=== PATIENT | female | born 1975 ===

== ENCOUNTER 2016-06-07 11:37 | Observation (INO) ==
[2016-06-07 12:51] LABS: Basophils # 0.1 K/mcL (0.0-0.2); Basophils % 0.4 %; Eosinophils # 0.2 K/mcL (0.0-0.6); Eosinophils % 1.1 %; Hematocrit 33.9 % (35.3-44.9); Hemoglobin 11.6 g/dL (11.5-15.4); Immature Granulocytes % 3.8 % (0-4); Immature Platelets 2.7 % (1.1-6.1); Lymphocytes # 2.3 K/mcL (0.6-4.6); Lymphocytes % 16.1 %; Mean Corpuscular HGB Conc 34.2 g/dL (31.6-35.5); Mean Corpuscular Hemoglobin 32.6 pg (28.0-33.3); Mean Corpuscular Volume 95.2 fL (83.0-100.0); Mean Platelet Volume 10.2 fL (9.4-12.4); Monocytes # 1.1 K/mcL (0.0-1.3); Monocytes % 7.5 %; Neutrophils # 10.1 K/mcL (1.6-8.9); Platelet Count 283 K/mcL (140-400); Red Blood Count 3.56 M/mcL (3.82-4.97); Segmented Neutrophils % 71.1 %
[2016-06-07 12:59] LABS: Creatinine,Urine 27 mg/dL
[2016-06-07 13:00] LABS: Protein/Creatinine Ratio,Urine < 0.26 mg/mg (0-0.20)
[2016-06-07 13:04] LABS: Alanine Aminotransferase 29 Units/L (0-55); Aspartate Amino Transferase 24 Units/L (5-34); BUN/Creatinine Ratio 10 (6-26); Blood Urea Nitrogen 6 mg/dL (7-20); Lactate Dehydrogenase 119 Units/L (159-327); Uric Acid 3.3 mg/dL (2.6-6.0); eGFR For African Americans > 60 (> 60); eGFR For Non-African Americans > 60 (> 60)
== END 2016-06-07 13:40 | disposition home or self-care (01) ==
LOC: 1NENULAB
PROVIDERS: ADMIT Obstetrics & Gynecology; ATTEND Obstetrics & Gynecology

== ENCOUNTER 2016-09-10 05:45 | Inpatient (IN) ==
[~2016-09-10 05:45] MED LIST: Famotidine 20 MG/2 ML VIAL IVP PRN; Naloxone 0.4 MG/ML INJ IVP PRN; Penicillin G Potassium 5,000,000 UNIT in D5% in Water (Mini-Bag+) 100 ML IVPB ONE
[2016-09-10 05:56] LABS: Basophils % 0.3 %; Eosinophils # 0.1 K/mcL (0.0-0.6); Hematocrit 34.1 % (35.3-44.9); Hemoglobin 11.8 g/dL (11.5-15.4); Immature Granulocytes % 3.2 % (0-4); Immature Platelets 5.9 % (1.1-6.1); Lymphocytes # 2.4 K/mcL (0.6-4.6); Mean Corpuscular HGB Conc 34.6 g/dL (31.6-35.5); Mean Corpuscular Hemoglobin 32.5 pg (28.0-33.3); Mean Corpuscular Volume 93.9 fL (83.0-100.0); Mean Platelet Volume 11.4 fL (9.4-12.4); Monocytes # 1.4 K/mcL (0.0-1.3); Monocytes % 9.9 %; Neutrophils # 9.6 K/mcL (1.6-8.9); Platelet Count 275 K/mcL (140-400); Red Blood Count 3.63 M/mcL (3.82-4.97); Segmented Neutrophils % 68.6 %
[2016-09-10] MEDS ORDERED: Ringers Solution, Lactated 1,000 ML ONE (06:04)
[2016-09-10] MEDS: Ringers Solution, Lactated 1,000 ML IVC SCH ×2 (06:07→10:13)
[2016-09-10 06:10] LABS: Alanine Aminotransferase 12 Units/L (0-55); Aspartate Amino Transferase 15 Units/L (5-34); BUN/Creatinine Ratio 13 (6-26); Blood Urea Nitrogen 8 mg/dL (7-20); Lactate Dehydrogenase 126 Units/L (159-327); Uric Acid 4.5 mg/dL (2.6-6.0); eGFR For African Americans > 60 (> 60); eGFR For Non-African Americans > 60 (> 60)
[2016-09-10] MEDS ORDERED: miSOPROStol 100 MCG TABLET PO STA (06:54)
--- NOTE | 2016-09-10 09:09 | OB/GYN History & Physical ---
Date of Encounter: 09/10/16 Time of Encounter: 08:00 Assessment and Plan (1) 37 weeks gestation of Current visit: Yes Status: Acute (2) Positive GBS test Current visit: Yes Status: Acute (3) Spontaneous rupture of membranes Current visit: Yes Status: Acute admit to labor and delivery Misoprostol given po for induction due to rupture of membranes PCN for GBS May have nubain and epidural as desired Anticipate (4) AMA (advanced maternal age) multigravida 35+ Current visit: No Status: Acute Qualifiers: Trimester: third trimester Qualified Code(s): O09.523 - Supervision of elderly multigravida, third trimester (5) Elevated BP without diagnosis of hypertension Current visit: No Status: Acute PIH labs negative History of Present Illness HPI: Ms. Cardona is a 40 year old female 37+4 gestation admitted with SROM of clear fluid. Denies vaginal bleeding or contractions. complicated with GHTN, but not on medications. slightly elevated BP on admission. Denies headache, vision changes or RUQ pain, PIH labs negative. Labs: A+, Rubella Immune, GBS +, all other serologies negative Past Med Surg Social Fam HX - Past Medical History Medical history: no medical history Psychiatric history: no psych history - Past Surgical History Surgical History: no surgical history - Social History Smoking Status: Never smoker Smokeless Tobacco Status: No Alcohol use: none Drug use: none - Family History Mother Adopted: No Living Status: Still Living Hx Family Cardiac Disorders: Yes (htn) Hx Family Respiratory Disorders: No Hx Family Cancer: No Hx Family GI Disorders: No Hx Family Genitourinary Disorders: No Hx Family Endocrine Disorder: Yes (diabetic) Hx Family Musculoskeletal Disorders: No Hx Family Neuromuscular Disorders: No Hx Family Neurologic Disorders: No Hx Family HEENT Disorders: No Hx Family Autoimmune Disorders: No Hx Family Reproductive Disorders: No Hx Family Psychosocial Disorders: No Hx Family Medical Disorders: No Obstetrical History - Pregnancies : 1 Para: 0 Term: 0 : 0 Ab's: 0 Livin Medications and Allergies Aspirin [Lo-Dose Aspirin EC] 1 tab PO DAILY 09/10/16 [History] Magnesium [Magnesium] 1 tab PO DAILY 09/10/16 [History] Vyd277/Iron Fumarate/FA/Dss [ 19 Tablet] 1 tab PO DAILY 09/10/16 [ History] Allergies Sulfa (Sulfonamide Antibiotics) Allergy (Verified 09/10/16 04:52) Rash Exam - Constitutional Constitutional: well developed, well nourished, no acute distress, average body habitus - Neck Neck exam: full ROM - Lungs Respiratory exam: CTAB - Cardiovascular Cardiovascular exam: RRR, +S1, +S2 - Abdomen Abdomen: Present: bowel sounds normal - Extremities Deep Tendon Reflex Grade: 3+ Normal But Brisk Results Result Diagrams: 09/10/16 05:30 09/10/16 05:30 Abnormal lab results WBC 14.0 K/mcL (4.3-11.1) H 09/10/16 05:30 RBC 3.63 M/mcL (3.82-4.97) L 09/10/16 05:30 Hct 34.1 % (35.3-44.9) L 09/10/16 05:30 Neutrophils # 9.6 K/mcL (1.6-8.9) H 09/10/16 05:30 Monocytes # 1.4 K/mcL (0.0-1.3) H 09/10/16 05:30 Lactate Dehydrogenase 126 Units/L (159-327) L 09/10/16 05:30 All other labs normal. - VTE Reasons for not Prescribing Prophylaxis: Treatment not Indicated - Low risk for VTE
[2016-09-10] MEDS ORDERED: *HR* Nalbuphine 20 MG/ML AMPUL IVP PRN (09:53)
[2016-09-10] MEDS ORDERED: *HR* Nalbuphine 20 MG/ML AMPUL ONE (09:57)
[2016-09-10] MEDS ORDERED: Epidural Premix (fent/bupiv) 110 ML EP ONE ×2 (10:20→12:21)
[2016-09-10] MEDS ORDERED: *HR* FentaNYL (PF) 100 MCG/2 ML VIAL ONE (10:20)
[2016-09-10] MEDS ORDERED: Bupivacaine-MPF 0.25% 10 ML VIAL ONE (10:20)
[2016-09-10] MEDS: Penicillin G Potassium 2,500,000 UNIT in D5% in Water 100 ML IVPB SCH ×2 (10:32→14:08)
--- NOTE | 2016-09-10 10:50 | Anesthesia Evaluation PreOp ---
Date of Encounter: 09/10/16 Time of Encounter: 10:25 - Past History Planned Operation: UBALDO Cardiac History: Denies any Significant Hx Pulmonary History: Denies Any Significant HX PLASTIC AND RECONSTRUCTIVE SURGEON History: Denies Any Significant HX Other Medical History: Denies Any Significant HX Anesthesia History: No Prior Anesthetic Complications (never had any procedure requiring GA; denies personal or family h/o GA complications), Past Anesthesia : Yes Test: Positive Alcohol Use: none Drug use: none Medications and Allergies Aspirin [Lo-Dose Aspirin EC] 1 tab PO DAILY 09/10/16 [History] Magnesium [Magnesium] 1 tab PO DAILY 09/10/16 [History] Dfv852/Iron Fumarate/FA/Dss [ 19 Tablet] 1 tab PO DAILY 09/10/16 [ History] Allergies Sulfa (Sulfonamide Antibiotics) Allergy (Verified 09/10/16 04:52) Rash - Meds/Allergy Pre-op Review Medications Reviewed: Yes Allergies Reviewed: Yes Beta Blockers on Current Med List: No Anesthesia Results - Labs 09/10/16 05:30 09/10/16 05:30 Anesthesia Exam 122/75, HR 68, RR 15 O2 Sat Height 1.8 m Height 1.8 m Weight 101 kg Weight 101 kg NPO (# of Hours): solids > 8hrs Pain Scale: 8 Pain Scale Used: Numeric (1 - 10) - HEENT Pupil (Motor): Pupils equal Mallampati: II Teeth: Normal Oral Opening: Greater than 3 - PLASTIC AND RECONSTRUCTIVE SURGEON LOC: Oriented PLASTIC AND RECONSTRUCTIVE SURGEON Motor: Normal RUE, Normal LUE, Normal RLE, Normal LLE, Normal Face PLASTIC AND RECONSTRUCTIVE SURGEON Sensory: Normal: RUE, LUE, RLE, LLE, Face - Cardiac Rhythm: Regular Murmur: None - Pulmonary Breath Sounds: bilateral Clear Respiratory Effort: Symmetrical Anesthesia Assess/Plan ASA Score: 2 Modified Elvia Scale for Level of Consciousness: Anixous, agitated or restless Anesthetic Plan: Regional Autologous Blood: No Monitoring Plan: Standard Monitors Recovery Plan: Other
--- NOTE | 2016-09-10 10:53 | Anesthesia Procedures ---
Date of Encounter: 09/10/16 Time of Encounter: 10:51 Procedures: Anesthesia - Epidural/Spinal Patient ID/Chart reviewed: Yes Patient examined: Yes OB Eval: Gestational age: 37 weeks 4 days OB Eval: : 1 OB Eval: Hx Para: 0 OB Eval: Dilated at (cm): 4 OB Eval: Contractions: Non-stressed pattern Consent Obtained: Yes Supplemental Oxygen: None/Room Air Site Prep: Aseptic Technique, Sterile prep and drape, Povidone-Iodine 1% Patient position: upright Local Anesthetic: Lidocaine 1% Amount of Local Anesthetic used: 3 Touhy Needle Gauge: 18 Touhy Needle Depth (cm): 5 Catheter Depth at Skin (cm): 11 Test Dose (1.5% Lido + Epi): Volume given (mls): 5 Test Dose Result: Negative Loading Dose: 0.25% Marcaine (mls): 5 Loading Dose: Fentanyl (mcg): 100 Loading Dose Administered: Thru Catheter Infusion Med: 0.125% Bupivacaine w/ 2 mcg/ml Fentanyl Infusion Rate (mls/hr): [address]: Tegaderm, Tape Interspace Used: L4-L5 Loss of Resistance (TADEO): Yes Blood: No CSF: No Paresthesia: Yes (RLE) Vitals + FHT's: please see TOMASA Willis's electronic documentation
[2016-09-10] MEDS ORDERED: *HR* FentaNYL (PF) 100 MCG/2 ML VIAL EP ONE (10:56)
[2016-09-10] MEDS ORDERED: Bupivacaine-MPF 0.25% 10 ML VIAL EP ONE (10:56)
[2016-09-10] MEDS ORDERED: Epidural Premix (fent/bupiv) 110 ML EP SCH (11:00)
[2016-09-10] MEDS ORDERED: Oxytocin 20 units/ LR 1000 mL 20 UNIT/1,000 ML BAG IVC ONE (15:20)
[2016-09-10] MEDS ORDERED: Lidocaine 1% 20 ML MDV ONE (15:23)
--- NOTE | 2016-09-10 16:07 | OB/GYN Procedure Note ---
Delivery - Delivery Date: 09/10/16 Provider: Stacey Harris) Intrapartum events: none Delivery induction: misoprostol Delivery monitor: external FHT, external uterine Anesthesia: epidural Estimated Blood Loss: 300 - Infant (s) Infant A Infant Delivery Date: 09/10/16 Delivery Time: 15:26 Presentation: vertex Position: OA Gender: Female Viability: Viable Weight Gram: 3.26 kg at 1 minute: 8 at 5 mins: 9 Shoulder Dystocia: not encountered Specimens collected: cord blood Placenta: spontaneous - Repair Laceration Description: Perineal - 3rd Degree, Labial - Complications Delivery complications: none Delivery comments: Maternal bearing down efforts to of liveborn girl. Vertex presented OA, and shoulders easily followed. Compound hand presentation at delivery, no nuchal or shoulder dystocia encountered. Vigorous infant placed on maternal abdomen. Placenta delivered spontaneously (Mario). fundus firm and pitocin started per policy. Third degree perineal laceration noted, Dr. Mccloud called in for repair and completed complete repair of third-degree perineal laceration, labial laceration and a left sulcal laceration. EBL 300. All sponge and needle counts correct - Disposition Mom disposition: stable in LDR disposition: stable in LDR
[2016-09-10] MEDS ORDERED: Benzocaine/Menthol 56 GM AEROSOL SPRAY TP PRN (17:28)
[2016-09-10] MEDS ORDERED: *HR* HYDROcodone/Acet 5/325 mg TABLET PO PRN (17:28)
[2016-09-10] MEDS ORDERED: Oxytocin 20 units/ LR 1000 mL 20 UNIT/1,000 ML BAG IVC SCH (17:28)
[2016-09-10] MEDS ORDERED: Acetaminophen 325 MG TABLET PO PRN (17:28)
[2016-09-10] MEDS ORDERED: Lanolin 7 G OINT...G. TP PRN (17:28)
[2016-09-11] MEDS: Ibuprofen 600 MG TABLET PO PRN ×3 (00:30→13:48)
[2016-09-11 06:47] LABS: Basophils % 0.3 %; Eosinophils # 0.3 K/mcL (0.0-0.6); Eosinophils % 1.7 %; Hematocrit 28.3 % (35.3-44.9); Lymphocytes # 2.2 K/mcL (0.6-4.6); Lymphocytes % 14.6 %; Mean Corpuscular HGB Conc 34.3 g/dL (31.6-35.5); Mean Corpuscular Volume 96.3 fL (83.0-100.0); Mean Platelet Volume 11.1 fL (9.4-12.4); Monocytes % 6.5 %; Neutrophils # 11.3 K/mcL (1.6-8.9); Platelet Count 234 K/mcL (140-400); Red Blood Count 2.94 M/mcL (3.82-4.97); Red Cell Distribution Width 14.1 % (11.5-14.5); Segmented Neutrophils % 73.9 %
[2016-09-11 06:51] LABS: Hemoglobin 9.7 g/dL (11.5-15.4)
--- NOTE | 2016-09-11 07:49 | Discharge Summary ---
Date of Encounter: 09/11/16 Time of Encounter: 07:46 - Discharge Diagnosis (1) Vaginal delivery Priority: Primary Status: Acute Comments: Patient doing well day 1 post States vaginal bleeding is light and without clots Pain well controlled Urinating and passing flatus without difficulty. Would like to discharge home after 24 hours. Patient is well. (2) Breast feeding status of mother Priority: Primary Status: Acute Comments: is going well Patient denies needs for breast pump - Discharge Medications Prescriptions: Ibuprofen [Motrin] 600 mg PO Q6HR PRN #30 tablet PRN Reason: Cramping Ferrous Sulfate 325 mg PO DAILY #60 tablet Home Medications: Uat716/Iron Fumarate/FA/Dss [ 19 Tablet] 1 tab PO DAILY 09/10/16 [ History] Benzocaine/Menthol [place] [Dermoplast [place]] 1 appl TP QID PRN #0 aerosol [Rx] Docusate [Colace] 100 mg PO BID capsule 09/11/16 [Rx] Ferrous Sulfate 325 mg PO DAILY #60 tablet 09/11/16 [Rx] Ibuprofen [Motrin] 600 mg PO Q6HR PRN #30 tablet 09/11/16 [Rx] Lanolin [Lansinoh] 1 appl TP QID PRN #0 oint...g. 09/11/16 [Rx] Allergies/Adverse Reactions: Allergies Sulfa (Sulfonamide Antibiotics) Allergy (Verified 09/10/16 04:52) Rash Data Procedures and tests throughout hospitalization: Laboratory Tests 09/10/16 09/10/16 09/11/16 05:30 05:30 06:32 WBC 14.0 H 15.2 H RBC 3.63 L 2.94 L Hgb 11.8 9.7 L D Hct 34.1 L 28.3 L MCV 93.9 96.3 MCH 32.5 33.0 MCHC 34.6 34.3 RDW 14.0 14.1 Plt Count 275 234 MPV 11.4 11.1 Immature Gran % 3.2 3.0 Seg Neutrophils % 68.6 73.9 Lymphocytes % 17.0 14.6 Monocytes % 9.9 6.5 Eosinophils % 1.0 1.7 Basophils % 0.3 0.3 Neutrophils # 9.6 H 11.3 H Lymphocytes # 2.4 2.2 Monocytes # 1.4 H 1.0 Eosinophils # 0.1 0.3 Basophils # 0.0 0.0 Immature Plt Fraction 5.9 BUN 8 Creatinine 0.64 Est GFR ( Amer) > 60 Est GFR (Non-Af Amer) > 60 BUN/Creatinine Ratio 13 Uric Acid 4.5 AST 15 ALT 12 Lactate Dehydrogenase 126 L Labs on day of discharge: Labs from last 24 hours 09/11/16 06:32 WBC 15.2 H RBC 2.94 L Hgb 9.7 L D Hct 28.3 L MCV 96.3 MCH 33.0 MCHC 34.3 RDW 14.1 Plt Count 234 MPV 11.1 Immature Gran % 3.0 Seg Neutrophils % 73.9 Lymphocytes % 14.6 Monocytes % 6.5 Eosinophils % 1.7 Basophils % 0.3 Neutrophils # 11.3 H Lymphocytes # 2.2 Monocytes # 1.0 Eosinophils # 0.3 Basophils # 0.0 Date of admission: 09/10/16 05:45 Primary care physician: PCP RUSS Consults: 09/10/16 17:28 Consult to Label Coder [CONS] Routine Comment: Vaginal delivery, consult needed Discharging clinician: Alisa Gaytan Anticipated date of discharge: 09/11/16 - Patient Status Disposition: Home, Self-Care Condition: Good Functional capacity at discharge: independent ambulation Overall status at discharge: patient is not back to baseline - Discharge Instructions Follow Up With: RUSS,PCP [Primary Care Provider] - Reece Weinstein MD [Partnered Physician] - (In 6 weeks) - Diet and Activity Activity: increase activity as tolerated Diet: regular diet Hospital Course Reason for admission: induction of labor Delivery: Episiotomy: none Laceration: 3rd degree Other procedures: none complications: none Discharge diagnosis: IUP at term delivered baby: female Time Attestation: Total time spent providing and/or coordinating discharge services: Time Spent: Less than 30 minutes Exam - Constitutional Vitals: Temp Pulse Resp BP Pulse Ox 97.8 F 73 14 109/66 99 09/11/16 03:10 09/11/16 03:10 09/11/16 03:10 09/11/16 03:10 09/11/16 03:10 General appearance IM: cooperative, A&O X 3, pleasant - Respiratory Respiratory exam: Present: CTAB - Cardiovascular Cardiovascular exam IM: Present: RRR, +S1, +S2 - GI/Abdominal GI/Abdominal exam IM: normal bowel sounds, soft - Rectal Rectal exam: deferred - Uterine Tone: Firm Uterus Position: At Umbilicus, 1 Finger Below Umbilicus, Midline - Extremities Exam Extremities exam IM: Present: normal capillary refill, normal inspection, radial pulses palpable and symetrical. Absent: calf tenderness, pedal edema, tenderness - Neurological Exam Neurological exam: alert, oriented X3, reflexes normal
[2016-09-11 08:10] VITALS: BP 122/80
[2016-09-11] MEDS ORDERED: Prenatal Vit/FA 1 EACH TABLET PO SCH (09:00)
== END 2016-09-11 17:01 | disposition home or self-care (01) | DRG 775 ==
LOC: 1NENULAB → 1NENUOBS 17:26
PROVIDERS: ADMIT Registered Nurse; ATTEND Obstetrics & Gynecology